=== PATIENT | female | born 1945 | race Caucasian/White ===

== ENCOUNTER 2017-12-24 18:18 | Observation (INO) | payer MEDICARE, MEDICAID ==
--- NOTE | 2017-12-24 19:13 | ED PDOC ---
HPI: SOB/CHF/COPD History Per: Patient, Family (acute care nurse practitioner ) History/Exam Limitations: no limitations Onset/Duration Of Symptoms: Days Current Symptoms Are (Timing): Still Present Associated Symptoms: denies: Fever, Chills, Sweating <Dominga Nowak - Last Filed: 12/24/17 19:31> <Toribio Serrano - Last Filed: 12/24/17 21:22> Time Seen by Provider: 12/24/17 18:29 Chief Complaint (Nursing): Weakness/Neurological Deficit Additional Complaint(s): CC: shortness of breath HPI: 72 YO female with PMHx of HTN, CVA, parkinson's disease, HLD presents to [facility] ED from physician's office for dyspnea. Pt states that she has had dyspnea in the past few days (mostly in the afternoon), worse this afternoon, which took her to her PMD office. At the office, pt was found to have O2 sat 97% on RA , but continued to feel short of breath. Pt was sent to ER to be evaluated for dyspnea. Also endorsing intermittent vague chest discomfort. Per pt, has apt with Commercial Baking Teacher for stress test on Friday12/29/17. Denies palpitations, cough , chills, fever, abdominal pain, dysuria, urinary frequency. At baseline, pt able to ambulate at home with walker with help by acute care nurse practitioner. No recent hx of travel. PMD: [facility] (Dr. Homar Velázquez) PMHx: CVA, HTN, parkinson's disease, HLD SUrgHx: SH: denies ETOH, smoking and illicit drug use FH: non-contributory Allergies: NKDA Meds: Rytary, quetiapine, clonazapam, clopidogrel, atrovastatin, asa, calcium, CoQ (Dominga Nowak) Supervising Attending Note - Attestation: I have personally seen and examined this patient.: Yes I have fully participated in the care of the patient.: Yes I have reviewed all pertinent clinical information, including history, physical exam and plan: Yes <Toribio Serrano - Last Filed: 12/24/17 21:22> Past Medical History - Medical History PMH: Hypercholesterolemia, Parkinson's Disease (Rytary, Azilect, Trazodone) - Family History Family History: States: Unknown Family Hx - Living Arrangements Living Arrangements: With Family - Social History Current smoker - smoking cessation education provided: No Alcohol: None Drugs: Denies <Dominga Nowak - Last Filed: 12/24/17 19:31> <Toribio Serrano - Last Filed: 12/24/17 21:22> Vital Signs: Last Vital Signs Temp 98.9 F 12/24/17 18:20 Pulse 89 12/24/17 18:20 Resp 21 12/24/17 18:20 BP 152/111 H 12/24/17 18:20 Pulse Ox 99 12/24/17 19:34 - Allergies Allergies/Adverse Reactions: Allergies Allergy/AdvReac Type Severity Reaction Status Date / Time No Known Allergies Allergy Verified 12/24/17 21:20 Review of Systems Constitutional: Positive for: Weakness. Negative for: Fever, Chills, Sweats Cardiovascular: Negative for: Chest Pain, Palpitations Respiratory: Positive for: Shortness of Breath. Negative for: Cough <Dominga Nowak - Last Filed: 12/24/17 19:31> Physical Exam - Physical Exam Appears: Positive for: No Acute Distress Skin: Positive for: Pallor Neck: Positive for: Normal, Painless ROM Cardiovascular/Chest: Positive for: Regular Rate, Rhythm, Other (no chest tendnerss to palpation ). Negative for: Murmur Respiratory: Positive for: Normal Breath Sounds. Negative for: Accessory Muscle Use, Crackles, Wheezing Gastrointestinal/Abdominal: Positive for: Bowel Sounds, Soft. Negative for: Tenderness Extremity: Negative for: Tenderness, Pedal Edema, Deformity Neurologic/Psych: Positive for: Alert, Oriented <Dominga Nowak - Last Filed: 12/24/17 19:31> - ECG O2 Sat by Pulse Oximetry: 99 <Dominga Nowak - Last Filed: 12/24/17 19:31> - Laboratory Results Result Diagrams: 12/24/17 19:38 12/24/17 19:38 <Toribio Serrano - Last Filed: 12/24/17 21:22> - Progress ED Course And Treament: 72 YO female with dyspnea. Afebrile, O2 99% in RA. BP elevated. -EKG -Blood work -udip -D-dimer -Chest XR -ABG -Trops Pt endorsed to Dr. Serrano. (Dominga Nowak) Medical Decision Making <Dominga Nowak - Last Filed: 12/24/17 19:31> <Toribio Serrano - Last Filed: 12/24/17 21:22> Medical Decision MakinPM Patient re-evaluated at bedside, states she feels well. Asking for night meds to sleep, will also order ASA. Case discussed with Dr. Lizama for Tele-Obs admission for continuous cardiac monitoring and serial trops given age and cardiac risk factors. (Toribio Serrano) Disposition - Patient ED Disposition Is Patient to be Admitted: Transfer of Care - Disposition Disposition Time: 19:34 <Dominga Nowak - Last Filed: 12/24/17 19:31> - Patient ED Disposition Is Patient to be Admitted: Yes - Disposition Disposition Time: 21:22 <Toribio Serrano - Last Filed: 12/24/17 21:22> - Clinical Impression Clinical Impression: Dyspnea, Chest pain - Disposition Condition: FAIR Forms: [place] ([place])
[2017-12-24 19:46] LABS: VENOUS BLOOD GAS BASE EXCESS 6.9 mmol/L (0.0-2.0); VENOUS BLOOD GAS PCO2 52 mmHg (40-60); VENOUS BLOOD GAS PO2 39 mm/Hg (30-55); VENOUS BLOOD PH 7.41 (7.32-7.43)
[2017-12-24 19:55] LABS: CALCIUM 9.4 mg/dL (8.4-10.2); GFR AFRICAN-AMERICAN > 60; GFR NON-AFRICAN AMERICAN > 60
[2017-12-24 19:57] LABS: BLOOD UREA NITROGEN 17 mg/dl (7-17)
[2017-12-24 20:33] LABS: BASO % 0.6 % (0.0-2.0); EOS % 0.2 % (0.0-4.0); HEMOGLOBIN 12.9 g/dL (12.0-16.0); LYMPH # 1.1 K/uL (1.0-4.3); MEAN CELL VOLUME 96.4 fl (81.0-99.0); MEAN CORPUSCULAR HEMOGLOBIN 31.8 pg (27.0-31.0); MEAN PLATELET VOLUME 8.6 fl (7.2-11.7); MONO # 0.4 K/uL (0.0-0.8); MONO % 4.9 % (0.0-10.0); NEUT # 6.1 K/uL (1.8-7.0); NEUT % 80.3 % (50.0-75.0); RBC 4.07 Mil/uL (3.80-5.20); RED CELL DISTRIBUTION WIDTH 13.7 % (11.5-14.5); WHITE BLOOD COUNT 7.6 K/uL (4.8-10.8)
[2017-12-24 20:44] LABS: URINE CLARITY Clear (Clear); URINE COLOR STRAW (YELLOW); URINE GLUCOSE (UA) NEG (Normal)
[2017-12-24 20:45] LABS: SQUAMOUS EPITHIAL 2 /hpf (0-5); URINE BILIRUBIN NEGATIVE (NEGATIVE); URINE BLOOD SMALL (NEGATIVE); URINE LEUKOCYTE ESTERASE TRACE Leu/uL (Negative); URINE PROTEIN NEGATIVE (NEGATIVE); URINE UROBILINOGEN 0.2 mg/dL (0.2-1.0)
[2017-12-24 20:46] LABS: URINE BACTERIA RARE (<OCC)
[2017-12-25 00:12] VITALS: RESP 18
[2017-12-25] MEDS ORDERED: CARBIDOPA PO SCH ×3 (00:45→09:00)
[2017-12-25] MEDS ORDERED: LEVODOPA PO SCH ×3 (00:45→09:00)
[2017-12-25 05:16] VITALS: O2SAT 96
--- NOTE | 2017-12-25 08:56 | CP.PCM.HP ---
<Ivy Hobson - Last Filed: 12/25/17 13:09> History of Present Illness - History of Present Illness History of Present Illness: 72 yo female with PMHx of HTN, CVA, parkinson's disease, HLD admitted to telemetry after presenting to ED yesterday. Pt relayed she has been feeling SOB for a few days and went to her PMD who referred her to ED for further eval. States that she has discomfort, but not pain, in her chest. Per pt, has apt with contract administration manager at [facility] for stress test and echo on Friday12/29/17. Denied palpitations, cough, chills, fever, abdominal pain, dysuria, urinary frequency. Has baseline tremor due to Parkinson's. At baseline, pt able to ambulate at home with walker with help by emergency care tech. PMD: [facility] -Dr. Homar Velázquez Past Med hx: CVA, HTN, Parkinson's disease, HLD Fam hx: noncontributory Social hx: denies tobacco, etoh, drug yuse Allergies: NKDA Meds: Rytary, amitiza (lubiprostone), quetiapine, clonazapam, clopidogrel, atrovastatin, asa, calcium, CoQ Pt was examined this am with Dr. Lizama on rounds. She was upset because she did not get all her parkinson's meds (nonformulary); pt stated family member/friend would bring her meds this morning. Present on Admission - Present on Admission Any Indicators Present on Admission: No Review of Systems - Review of Systems All systems: reviewed and no additional remarkable complaints except - Respiratory Respiratory: Dyspnea Past Patient History - Past Medical History & Family History Past Medical History?: Yes - Past Social History Smoking Status: Never Smoked - CARDIAC Hx Cardiac Disorders: Yes Hx Hypertension: Yes - PULMONARY Hx Respiratory Disorders: Yes Hx Pneumonia: Yes - NEUROLOGICAL Hx Neurological Disorder: Yes Hx Parkinson's Disease: Yes - HEENT Hx HEENT Problems: No - RENAL Hx Chronic Kidney Disease: No - ENDOCRINE/METABOLIC Hx Endocrine Disorders: No - HEMATOLOGICAL/ONCOLOGICAL Hx Blood Disorders: No Hx AIDS: No Hx Human Immunodeficiency Virus (HIV): No - INTEGUMENTARY Hx Dermatological Problems: No - MUSCULOSKELETAL/RHEUMATOLOGICAL Hx Musculoskeletal Disorders: No Hx Falls: Yes - GASTROINTESTINAL Hx Gastrointestinal Disorders: Yes - GENITOURINARY/GYNECOLOGICAL Hx Genitourinary Disorders: No - PSYCHIATRIC Hx Psychophysiologic Disorder: Yes Hx Anxiety: Yes Hx Substance Use: No - SURGICAL HISTORY Hx Surgeries: No - ANESTHESIA Hx Anesthesia: No Meds Allergies/Adverse Reactions: Allergies Allergy/AdvReac Type Severity Reaction Status Date / Time No Known Allergies Allergy Verified 12/24/17 21:20 Physical Exam - Constitutional Appears: Non-toxic, Chronically Ill - Eye Exam Eye Exam: Normal appearance - Respiratory Exam Respiratory Exam: Clear to Auscultation Bilateral, NORMAL BREATHING PATTERN - Cardiovascular Exam Cardiovascular Exam: REGULAR RHYTHM, +S1, +S2 - GI/Abdominal Exam GI & Abdominal Exam: Normal Bowel Sounds, Soft - Extremities Exam Additional comments: no edema, no calf tenderness - Neurological Exam Neurological exam: Alert, Oriented x3 Additional comments: resting pill rolling tremor, most prominent in RUE - Skin Skin Exam: Normal Color, Warm Results - Vital Signs Recent Vital Signs: Last Vital Signs Temp 97.6 F 12/25/17 08:00 Pulse 92 H 12/25/17 08:00 Resp 18 12/25/17 08:00 BP 160/84 H 12/25/17 08:00 Pulse Ox 96 12/25/17 08:00 - Labs Result Diagrams: 12/24/17 19:38 12/24/17 19:38 Labs: Laboratory Results - last 24 hr 12/24/17 12/24/17 12/24/17 19:37 19:38 19:38 WBC 7.6 RBC 4.07 Hgb 12.9 Hct 39.2 MCV 96.4 MCH 31.8 H MCHC 33.0 RDW 13.7 Plt Count 269 MPV 8.6 Neut % (Auto) 80.3 H Lymph % (Auto) 14.0 L [place] % (Auto) 4.9 Eos % (Auto) 0.2 Baso % (Auto) 0.6 Neut # (Auto) 6.1 Lymph # (Auto) 1.1 [place] # (Auto) 0.4 Eos # (Auto) 0.0 Baso # (Auto) 0.0 D-Dimer, Quantitative pO2 39 VBG pH 7.41 VBG pCO2 52 VBG HCO3 29.7 VBG Total CO2 34.6 H VBG O2 Sat (Calc) 79.2 H VBG Base Excess 6.9 H VBG Potassium 3.7 Sodium 139.0 141 Chloride 104.0 106 Glucose 119 H Lactate 0.9 FiO2 21.0 Potassium 4.7 Carbon Dioxide 24 Anion Gap 16 BUN 17 Creatinine 0.4 L Est GFR ( Amer) > 60 Est GFR (Non-Af Amer) > 60 Random Glucose 113 H Calcium 9.4 Troponin I < 0.0120 Venous Blood Potassium 3.7 Urine Color Urine Clarity Urine pH Ur Specific [place] Urine Protein Urine Glucose (UA) Urine Ketones Urine Blood Urine Nitrate Urine Bilirubin Urine Urobilinogen Ur Leukocyte Esterase Urine RBC (Auto) Urine Microscopic WBC Ur Squamous Epith Cells Urine Bacteria 12/24/17 12/24/17 12/25/17 19:55 19:55 05:00 WBC RBC Hgb Hct MCV MCH MCHC RDW Plt Count MPV Neut % (Auto) Lymph % (Auto) [place] % (Auto) Eos % (Auto) Baso % (Auto) Neut # (Auto) Lymph # (Auto) [place] # (Auto) Eos # (Auto) Baso # (Auto) D-Dimer, Quantitative 101 pO2 VBG pH VBG pCO2 VBG HCO3 VBG Total CO2 VBG O2 Sat (Calc) VBG Base Excess VBG Potassium Sodium Chloride Glucose Lactate FiO2 Potassium Carbon Dioxide Anion Gap BUN Creatinine Est GFR ( Amer) Est GFR (Non-Af Amer) Random Glucose Calcium Troponin I < 0.0120 Venous Blood Potassium Urine Color Straw Urine Clarity Clear Urine pH 7.0 Ur Specific [place] 1.008 Urine Protein Negative Urine Glucose (UA) Neg Urine Ketones Negative Urine Blood Small Urine Nitrate Negative Urine Bilirubin Negative Urine Urobilinogen 0.2 Ur Leukocyte Esterase Trace H Urine RBC (Auto) 10 H Urine Microscopic WBC 5 Ur Squamous Epith Cells 2 Urine Bacteria Rare Assessment & Plan - Assessment and Plan (Free Text) Assessment: 72 yo F, PMHx parkinson's, HLD, HTN, past CVA; admitted due to chest pain and dyspnea. Plan: - Admitted to tele - Resume home meds - Cardio consult - Dr. Reddy - Rest of plan as ordered <Ab Lizama - Last Filed: 12/25/17 20:14> Results - Vital Signs Recent Vital Signs: Last Vital Signs Temp 98.1 F 12/25/17 13:00 Pulse 92 H 12/25/17 13:00 Resp 18 12/25/17 13:00 BP 147/77 12/25/17 13:00 Pulse Ox 96 12/25/17 13:00 - Labs Result Diagrams: 12/24/17 19:38 12/24/17 19:38 Labs: Laboratory Results - last 24 hr 12/24/17 12/24/17 12/24/17 19:38 19:38 19:55 WBC 7.6 RBC 4.07 Hgb 12.9 Hct 39.2 MCV 96.4 MCH 31.8 H MCHC 33.0 RDW 13.7 Plt Count 269 MPV 8.6 Neut % (Auto) 80.3 H Lymph % (Auto) 14.0 L [place] % (Auto) 4.9 Eos % (Auto) 0.2 Baso % (Auto) 0.6 Neut # (Auto) 6.1 Lymph # (Auto) 1.1 [place] # (Auto) 0.4 Eos # (Auto) 0.0 Baso # (Auto) 0.0 D-Dimer, Quantitative Troponin I < 0.0120 Urine Color Straw Urine Clarity Clear Urine pH 7.0 Ur Specific [place] 1.008 Urine Protein Negative Urine Glucose (UA) Neg Urine Ketones Negative Urine Blood Small Urine Nitrate Negative Urine Bilirubin Negative Urine Urobilinogen 0.2 Ur Leukocyte Esterase Trace H Urine RBC (Auto) 10 H Urine Microscopic WBC 5 Ur Squamous Epith Cells 2 Urine Bacteria Rare 12/24/17 12/25/17 12/25/17 19:55 05:00 11:24 WBC RBC Hgb Hct MCV MCH MCHC RDW Plt Count MPV Neut % (Auto) Lymph % (Auto) [place] % (Auto) Eos % (Auto) Baso % (Auto) Neut # (Auto) Lymph # (Auto) [place] # (Auto) Eos # (Auto) Baso # (Auto) D-Dimer, Quantitative 101 Troponin I < 0.0120 < 0.0120 Urine Color Urine Clarity Urine pH Ur Specific [place] Urine Protein Urine Glucose (UA) Urine Ketones Urine Blood Urine Nitrate Urine Bilirubin Urine Urobilinogen Ur Leukocyte Esterase Urine RBC (Auto) Urine Microscopic WBC Ur Squamous Epith Cells Urine Bacteria Assessment & Plan - Assessment and Plan (Free Text) Plan: Patient was personally seen and examined by me in rounds with residents. Available labs and diagnostic data reviewed. Case, Patient's condition and management plan discussed with residents in rounds. Agree with resident's progress note. Plan: As ordered.
[2017-12-25] MEDS ORDERED: CALCIUM CITRATE PO SCH (09:00)
[2017-12-25] MEDS ORDERED: Calcium-Vit D 500 mg-200 Units Tab UD PO SCH (09:00)
[2017-12-25] MEDS ORDERED: UBIDECARENONE 200 MG PO SCH (09:00)
[2017-12-25] MEDS ORDERED: VITAMIN D3 PO SCH (09:00)
[2017-12-25] MEDS ORDERED: Enoxaparin 40 mg Syringe SC SCH (09:00)
--- NOTE | 2017-12-25 09:40 | RAD ---
Date of service: 12/24/2017 HISTORY: dyspnea COMPARISON: No prior. TECHNIQUE: Chest PA and lateral FINDINGS: LUNGS: Minor linear atelectasis and or scarring left CP angle region PLEURA: No significant pleural effusion identified. No pneumothorax apparent. CARDIOVASCULAR: Normal. OSSEOUS STRUCTURES: No significant abnormalities. VISUALIZED UPPER ABDOMEN: Normal. OTHER FINDINGS: None. IMPRESSION: Minor linear atelectasis and or scarring left CP angle region
--- NOTE | 2017-12-25 12:04 | CP.PCM.CON ---
History of Present Illness - History of Present Illness History of Present Illness: Consultation for evaluation of BENNETT HPI: Review of Systems - Review of Systems Systems not reviewed;Unavailable: Acuity of Condition - Constitutional Constitutional: As Per HPI - EENT Eyes: As Per HPI Ears: As Per HPI Nose/Mouth/Throat: As Per HPI - Breasts Breasts: As Per HPI - Cardiovascular Cardiovascular: As Per HPI - Respiratory Respiratory: As Per HPI - Gastrointestinal Gastrointestinal: As Per HPI - Genitourinary Genitourinary: As Per HPI - Reproductive: Female Reproductive:Female: As Per HPI - Menstruation Menstruation: As Per HPI - Musculoskeletal Musculoskeletal: As Per HPI - Integumentary Integumentary: As Per HPI - Neurological Neurological: As Per HPI - Psychiatric Psychiatric: As Per HPI - Endocrine Endocrine: As Per HPI - Hematologic/Lymphatic Hematologic: As Per HPI Past Patient History - Past Medical History & Family History Past Medical History?: Yes - Past Social History Smoking Status: Never Smoked - CARDIAC Hx Cardiac Disorders: Yes Hx Hypertension: Yes - PULMONARY Hx Respiratory Disorders: Yes Hx Pneumonia: Yes - NEUROLOGICAL Hx Neurological Disorder: Yes Hx Parkinson's Disease: Yes (Rytary, Azilect, Trazodone) - HEENT Hx HEENT Problems: No - RENAL Hx Chronic Kidney Disease: No - ENDOCRINE/METABOLIC Hx Endocrine Disorders: No - HEMATOLOGICAL/ONCOLOGICAL Hx Blood Disorders: No Hx AIDS: No Hx Human Immunodeficiency Virus (HIV): No - INTEGUMENTARY Hx Dermatological Problems: No - MUSCULOSKELETAL/RHEUMATOLOGICAL Hx Musculoskeletal Disorders: No Hx Falls: Yes - GASTROINTESTINAL Hx Gastrointestinal Disorders: Yes Hx Irritable Bowel: Yes - GENITOURINARY/GYNECOLOGICAL Hx Genitourinary Disorders: No - PSYCHIATRIC Hx Psychophysiologic Disorder: Yes Hx Anxiety: Yes Hx Substance Use: No - SURGICAL HISTORY Hx Surgeries: No - ANESTHESIA Hx Anesthesia: No Meds Allergies/Adverse Reactions: Allergies Allergy/AdvReac Type Severity Reaction Status Date / Time No Known Allergies Allergy Verified 12/24/17 21:20 - Medications Medications: Current Medications Aspirin (Ecotrin) 81 mg PO DAILY [facility] Last Admin: 12/25/17 08:54 Dose: 81 mg Atorvastatin Calcium (Lipitor) 10 mg PO DAILY [facility] Calcium/Vitamin D (Oyster Shell Calcium/Vitamin D 500 Mg-200 Iu) 1 tab PO DAILY [facility] Last Admin: 12/25/17 08:56 Dose: Not Given Clonazepam (Klonopin) 0.5 mg PO BID PRN PRN Reason: Anxiety Clopidogrel Bisulfate (Plavix) 75 mg PO DAILY [facility] Enoxaparin Sodium (Lovenox) 40 mg SC DAILY [facility] PRN Reason: Protocol Last Admin: 12/25/17 08:56 Dose: Not Given Home Med (Lubiprostone [Amitiza]) 8 mcg PO DAILY [facility] Home Med (Ubidecarenone [Co Q-10]) 200 mg PO DAILY [facility] Home Med (Patient's Own Medication) 1 unit PO 0100,0800,1200,1500 [facility] Home Med (Patient's Own Medication) 1 unit PO QID [facility] Home Med (Patient's Own Medication) 1 unit PO 1800 [facility] Ibuprofen (Motrin Tab) 400 mg PO DAILY PRN PRN Reason: Pain, moderate (4-7) Quetiapine Fumarate (Seroquel) 25 mg PO HS [facility] Physical Exam - Constitutional Appears: Well - Head Exam Head Exam: ATRAUMATIC, NORMAL INSPECTION, NORMOCEPHALIC - Eye Exam Eye Exam: EOMI, Normal appearance, PERRL Pupil Exam: NORMAL ACCOMODATION, PERRL - ENT Exam ENT Exam: Mucous Membranes Moist, Normal Exam - Neck Exam Neck exam: Positive for: Normal Inspection - Respiratory Exam Respiratory Exam: Clear to Auscultation Bilateral, NORMAL BREATHING PATTERN - Cardiovascular Exam Cardiovascular Exam: REGULAR RHYTHM, +S1, +S2, Systolic Murmur - GI/Abdominal Exam GI & Abdominal Exam: Normal Bowel Sounds, Soft. absent: Tenderness - Extremities Exam Extremities exam: Positive for: normal inspection - Back Exam Back exam: NORMAL INSPECTION - Neurological Exam Neurological exam: Alert, CN II-XII Intact, Normal Gait, Oriented x3, Reflexes Normal - Psychiatric Exam Psychiatric exam: Normal Affect, Normal Mood - Skin Skin Exam: Dry, Intact, Normal Color, Warm Results - Vital Signs Recent Vital Signs: Last Vital Signs Temp 97.6 F 12/25/17 08:00 Pulse 89 12/25/17 09:00 Resp 18 12/25/17 08:00 BP 160/84 H 12/25/17 08:00 Pulse Ox 96 12/25/17 08:00 - Labs Result Diagrams: 12/24/17 19:38 12/24/17 19:38 Labs: Laboratory Results - last 24 hr 12/24/17 12/24/17 12/24/17 19:37 19:38 19:38 WBC 7.6 RBC 4.07 Hgb 12.9 Hct 39.2 MCV 96.4 MCH 31.8 H MCHC 33.0 RDW 13.7 Plt Count 269 MPV 8.6 Neut % (Auto) 80.3 H Lymph % (Auto) 14.0 L [place] % (Auto) 4.9 Eos % (Auto) 0.2 Baso % (Auto) 0.6 Neut # (Auto) 6.1 Lymph # (Auto) 1.1 [place] # (Auto) 0.4 Eos # (Auto) 0.0 Baso # (Auto) 0.0 D-Dimer, Quantitative pO2 39 VBG pH 7.41 VBG pCO2 52 VBG HCO3 29.7 VBG Total CO2 34.6 H VBG O2 Sat (Calc) 79.2 H VBG Base Excess 6.9 H VBG Potassium 3.7 Sodium 139.0 141 Chloride 104.0 106 Glucose 119 H Lactate 0.9 FiO2 21.0 Potassium 4.7 Carbon Dioxide 24 Anion Gap 16 BUN 17 Creatinine 0.4 L Est GFR ( Amer) > 60 Est GFR (Non-Af Amer) > 60 Random Glucose 113 H Calcium 9.4 Troponin I < 0.0120 Venous Blood Potassium 3.7 Urine Color Urine Clarity Urine pH Ur Specific [place] Urine Protein Urine Glucose (UA) Urine Ketones Urine Blood Urine Nitrate Urine Bilirubin Urine Urobilinogen Ur Leukocyte Esterase Urine RBC (Auto) Urine Microscopic WBC Ur Squamous Epith Cells Urine Bacteria 12/24/17 12/24/17 12/25/17 19:55 19:55 05:00 WBC RBC Hgb Hct MCV MCH MCHC RDW Plt Count MPV Neut % (Auto) Lymph % (Auto) [place] % (Auto) Eos % (Auto) Baso % (Auto) Neut # (Auto) Lymph # (Auto) [place] # (Auto) Eos # (Auto) Baso # (Auto) D-Dimer, Quantitative 101 pO2 VBG pH VBG pCO2 VBG HCO3 VBG Total CO2 VBG O2 Sat (Calc) VBG Base Excess VBG Potassium Sodium Chloride Glucose Lactate FiO2 Potassium Carbon Dioxide Anion Gap BUN Creatinine Est GFR ( Amer) Est GFR (Non-Af Amer) Random Glucose Calcium Troponin I < 0.0120 Venous Blood Potassium Urine Color Straw Urine Clarity Clear Urine pH 7.0 Ur Specific [place] 1.008 Urine Protein Negative Urine Glucose (UA) Neg Urine Ketones Negative Urine Blood Small Urine Nitrate Negative Urine Bilirubin Negative Urine Urobilinogen 0.2 Ur Leukocyte Esterase Trace H Urine RBC (Auto) 10 H Urine Microscopic WBC 5 Ur Squamous Epith Cells 2 Urine Bacteria Rare 12/25/17 11:24 WBC RBC Hgb Hct MCV MCH MCHC RDW Plt Count MPV Neut % (Auto) Lymph % (Auto) [place] % (Auto) Eos % (Auto) Baso % (Auto) Neut # (Auto) Lymph # (Auto) [place] # (Auto) Eos # (Auto) Baso # (Auto) D-Dimer, Quantitative pO2 VBG pH VBG pCO2 VBG HCO3 VBG Total CO2 VBG O2 Sat (Calc) VBG Base Excess VBG Potassium Sodium Chloride Glucose Lactate FiO2 Potassium Carbon Dioxide Anion Gap BUN Creatinine Est GFR ( Amer) Est GFR (Non-Af Amer) Random Glucose Calcium Troponin I < 0.0120 Venous Blood Potassium Urine Color Urine Clarity Urine pH Ur Specific [place] Urine Protein Urine Glucose (UA) Urine Ketones Urine Blood Urine Nitrate Urine Bilirubin Urine Urobilinogen Ur Leukocyte Esterase Urine RBC (Auto) Urine Microscopic WBC Ur Squamous Epith Cells Urine Bacteria Assessment & Plan (1) Chest pain Status: Acute (2) Dyspnea Status: Acute (3) Dyskinesia due to Parkinson's disease Status: Acute (4) Herniated disc, cervical Status: Acute (5) Neck pain Status: Acute (6) Parkinson disease Status: Acute
[2017-12-25] MEDS: RYTARY PO SCH ×4 (12:25→15:22)
[2017-12-25 13:01] VITALS: BP 147/77; PULSE 92; TEMP 98.1
--- NOTE | 2017-12-25 16:28 | CP.PCM.PCO ---
Addendum Addendum: Pt was eval by band saw operator cake cutting - recommended echo/stress test. Pt refused, stated she would not spend another night admitted and that she has outpt echo and stress test scheduled 12/29. Stated she understands that she would be leaving against medical advice. AMA form signed.
--- NOTE | 2017-12-25 16:33 | CARD ---
APPROVED REPORT Date of service: 12/24/2017 EKG Measurement Heart [id number] <Conclusion> Normal sinus rhythm Normal ECG
[2017-12-25] MEDS ORDERED: RYTARY PO SCH (18:00)
== END 2017-12-25 15:20 | disposition left against medical advice (07) ==
LOC: H.ER 18:18 → H.ERHOLD 21:01 → H.TEL 23:01
PROVIDERS: ADMIT Internal Medicine; ATTEND Internal Medicine
DX: R07.9 Chest pain, unspecified (principal); R06.00 Dyspnea, unspecified; M50.20 Other cervical disc displacement, unspecified cervical region; I10 Essential (primary) hypertension; Z86.73 Personal history of transient ischemic attack (TIA), and cerebral infarction without residual deficits; E78.5 Hyperlipidemia, unspecified; E78.00 Pure hypercholesterolemia, unspecified; G20 Parkinson's disease
CPT/HCPCS: 36415; 71046; 80048; 81003; 82803; 84484; 85025; 85378; 87086; 93005; 99285; G0378